=== PATIENT | male | born 1995 | race Caucasian/White ===

== ENCOUNTER 2019-02-13 20:04 | Emergency (ER) | payer OTHER ==
[~2019-02-13] VITALS: Ht 185.4 cm; Wt 65.8 kg
[2019-02-13] MEDS ORDERED: CENTANY30 GM TOP (21:10)
[2019-02-13] MEDS ORDERED: IBUPROFEN 800800 M1 PO (21:10)
[2019-02-13 21:35] VITALS: BP 118/61
== END 2019-02-13 21:35 | disposition home or self-care (01) ==
LOC: M.ERS 20:04
DX: S60.031A Contusion of right middle finger without damage to nail, initial encounter (principal); S60.221A Contusion of right hand, initial encounter; W22.8XXA Striking against or struck by other objects, initial encounter; Y92.89 Other specified places as the place of occurrence of the external cause; Y93.89 Activity, other specified; Y99.8 Other external cause status